=== PATIENT | female | born 1965 ===

== ENCOUNTER 2023-06-05 09:43 | Day surgery (SDC) | payer OTHER ==
[~2023-06-05] VITALS: Ht 160 cm; Wt 56.2 kg
[2023-06-05] MEDS ORDERED: LIDOCAINE 2% 100 MG/5 ML UJET TP ONE (10:38)
[2023-06-05] MEDS ORDERED: fentaNYL citrate 0.05 MG/ML VIAL ONE (10:38)
[2023-06-05] MEDS ORDERED: fentaNYL citrate 0.05 MG/ML VIAL IVP ONE (13:05)
== END 2023-06-05 11:42 | disposition home or self-care (01) ==
LOC: MDS 09:43 → MMU 09:45 → MDS 11:42
PROVIDERS: ATTEND Internal Medicine Gastroenterology
DX: R10.30 Lower abdominal pain, unspecified (principal); K57.30 Diverticulosis of large intestine without perforation or abscess without bleeding; E11.9 Type 2 diabetes mellitus without complications; I10 Essential (primary) hypertension; E78.5 Hyperlipidemia, unspecified; Z90.49 Acquired absence of other specified parts of digestive tract; Z88.0 Allergy status to penicillin; Z79.899 Other long term (current) drug therapy
CPT/HCPCS: 45378; J3010